=== PATIENT | female | born 1995 | race Caucasian/White ===

== ENCOUNTER 2021-11-18 13:20 | Emergency (ER) | payer OTHER ==
[~2021-11-18] VITALS: Ht 180.3 cm; Wt 121.9 kg
[2021-11-18] MEDS ORDERED: PRENATAL MULTI1 EAC5 PO (13:39)
--- NOTE | 2021-11-19 17:44 | EKG ---
[facility] [address] [facility] [place], [place] [address] Signed Sinus tachycardia Otherwise normal ECG No previous ECGs available Confirmed by ELIZA VAIL DO ([id number]) on 11/19/2021 5:44:11 PM Electronically Signed By: ELIZA VAIL DO 11/19/21 1744 PATIENT NAME: FRANCISCO PEDERSEN Electrocardiogram DATE OF : [birth year] PHYSICIAN: ELIZA VAIL DO REPORT #: [id number] REPORT IS CONFIDENTIAL AND NOT TO BE RELEASED WITHOUT AUTHORIZATION
== END 2021-11-18 17:23 | disposition home or self-care (01) ==
LOC: ED 13:20
DX: R07.89 Other chest pain (principal); Z88.0 Allergy status to penicillin; Z88.2 Allergy status to sulfonamides; Z88.8 Allergy status to other drugs, medicaments and biological substances; Z88.5 Allergy status to narcotic agent
CPT/HCPCS: 71260; 80048; 84484; 85025; 85379; 93005; 93010; 99285-25